=== PATIENT | female | born 1935 | race Caucasian/White ===

== ENCOUNTER 2016-10-19 15:48 | Emergency (ER) | payer OTHER ==
[~2016-10-19] VITALS: Ht 152.4 cm; Wt 59.9 kg
[2016-10-19 16:08] VITALS: BP 134/79
[2016-10-19] MEDS ORDERED: WELCHOL3.75 GM PO (16:49)
[2016-10-19] MEDS ORDERED: VITAMIN D2000 UNI1 PO (16:49)
[2016-10-19] MEDS ORDERED: OCUVITE SOFTGE1 EACH PO (16:50)
--- NOTE | 2016-10-19 17:03 | ED UPPER/LOWER EXTREMITY COMPL ---
History of Present Illness General Chief Complaint: Shoulder Injury Stated Complaint: FELL AND INJURED R SHOULDER Source: patient Exam Limitations: no limitations Vital Signs & Intake/Output Vital Signs & Intake/Output Vital Signs Date Time Temp Pulse Resp B/P Pulse O2 O2 Flow FiO2 Ox Delivery Rate 10/19 1608 97.7 71 18 134/79 98 Room Air ED Intake and Output 10/20 0000 10/19 1200 Intake Total Output Total Balance Patient 132 lb Weight Allergies Coded Allergies: STATINS (MUSCLE ACHES, DEPRESSION 10/19/16) Reconcile Medications Cholecalciferol (Vitamin D3) (Vitamin D) 2,000 UNIT TABLET 1 TAB PO DAILY SUPPLEMENT (Reported) Colesevelam HCl (Welchol) 3.75 GRAM POWD.PACK 1 PAC PO DAILY CHOLESTEROL ( Reported) mix with water, or juice Vit C/Vit E/Lutein/Min/[place]-3 (Ocuvite Softgel) 150 MG-30 UNIT-5 MG-150 MG CAPSULE 1 CAP PO DAILY SUPPLEMENT (Reported) Triage Note: PT TO TRIAGE 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 PT MEDICATED WITH TYLENOL 650MG PO IN TRIAGE. ICE PACK PROVIED. VSS. Triage Nurses Notes Reviewed? yes Onset: Abrupt Duration: constant, continues in ED Timing: remote history Severity: moderate, severe Pain/Injury Location: Right: Shoulder. No Modifying Factors: none HPI: 81-year-old female comes into emergency room for evaluation of right shoulder pain. Patient reports that she was getting up from her chair and tripped over the cord for her electric blanket and came down on her right shoulder. Patient denies any loss of consciousness. Denies any headache. Patient reports that she scraped her nose and the right but did not hit her head. Denies any neck pain. Patient reports that she banged her left knee but is only experiencing right shoulder pain. (JON VIDAL) Past History Travel History Traveled to [place] past 21 day No Medical History Any Pertinent Medical History? see below for history Cardiovascular: hyperlipidemia Surgical History Surgical History: non-contributory Psychosocial History What is your primary language Lithuanian Tobacco Use: Never used Family History Hx Contributory? No (JON VIDAL) Review of Systems Review of Systems Constitutional: Reports: no symptoms. EENTM: Reports: no symptoms. Respiratory: Reports: no symptoms. Cardiovascular: Reports: no symptoms. Gastrointestinal/Abdominal: Reports: no symptoms. Genitourinary: Reports: no symptoms. Musculoskeletal: Reports: see HPI. Skin: Reports: no symptoms. Neurological/Psychological: Reports: no symptoms. Hematologic/Endocrine: Reports: no symptoms. Immunological: Reports: no symptoms. All Other Systems: Reviewed and Negative (JON VIDAL) Physical Exam Physical Exam General Appearance: well developed/nourished, mild distress Head: atraumatic Eyes: Bilateral: normal appearance. Ears, Nose, Throat: normal ENT inspection, hearing grossly normal Neck: normal inspection Cardiovascular/Respiratory: no respiratory distress Back: normal inspection Shoulder Right: limited range of motion, CREPTUS Hand Right: normal inspection, normal range of motion Neurologic/Tendon: normal sensation, normal motor functions, normal tendon functions, responds to pain, no evidence tendon injury, no pulse deficit Skin: intact, normal color, warm/dry Lymphatic: no anterior cervical giovanni (JON VIDAL) Progress Differential Diagnosis: contusion, dislocation, fracture, gout, septic arthritis , sprain, tendon injury Plan of Care: Orders Procedure Date/time Status CT UPPER EXT WO IV CONTRAST 10/19 1703 Active Diagnostic Imaging: Viewed by Me: Radiology Read, CT Scan. Discussed w/RAD: Radiology Read, CT Scan. Radiology Impression: EXAM TYPE: RAD - XRY-SHOULDER COMPLETE-RIGHT EXAMINATION: XR SHOULDER, RIGHT CLINICAL INFORMATION: Right shoulder injury with pain COMPARISON: None. TECHNIQUE: 3 views of the right shoulder FINDINGS: There is a comminuted fracture of the right shoulder involving the neck of the humerus and greater tuberosity. There is slight impaction of the major fracture fragments with avulsion and displacement of the greater tuberosity. There is inferior subluxation of the humeral head in relation to the glenoid process the scapula. There is a probable undisplaced fracture involving the coronoid process of the scapula. There is hypertrophic bone along the undersurface of the acromion process of the scapula. Fracture of the tip of the acromion process would be difficult to entirely exclude. IMPRESSION: Comminuted impacted fracture of the head and neck of the right humerus with avulsion of the greater tuberosity and inferior subluxation of the humeral head in relation to the glenoid process. Possible undisplaced fracture of the tip of the coronoid process of the scapula. Hypertrophic bone versus avulsion fracture of the undersurface of the acromion process of the scapula. DICTATED BY: RAMSEY AVILES MD DATE/TIME DICTATED:1653 TRAIN CONDUCTOR:VALENTINA DATE/TIME TRANSCRIBED:10/19/161653, SERVICE DATE: 10/19/16 EXAM TYPE: CAT - CT UPPER EXT WO IV CONTRAST EXAMINATION: CT UPPER EXTREMITY (SHOULDER) WITHOUT CONTRAST, RIGHT CLINICAL INFORMATION: Trauma. Proximal humerus fracture. Assess for dislocation. COMPARISON: Plain films same date at 4:30 PM. TECHNIQUE: Contiguous axial imaging through the right shoulder. Coronal and sagittal reformats. DLP: 645.45 mGy-cm. FINDINGS: There is a severely comminuted impacted fracture of the head and surgical neck of the right humerus. Fracture line extends to the articular surface of the glenohumeral joint. On coronal reformats there is clear inferior displacement of the humeral head with rotation. The inferior rim of the glenoid impacts the fractured humeral head. This is consistent with an anterior inferior fracture or dislocation. The scapula is intact. Specifically, I see no fracture of the glenoid. There are degenerative changes associated with the acromion process but the acromioclavicular joint is preserved. The coracoclavicular ligament is intact. High attenuation material within the shoulder joint suggests hemarthrosis. Limited images through the right lung demonstrates apical pleural- parenchymal scarring. Small air cysts are noted. No rib fracture. IMPRESSION: This is a comminuted impacted anterior inferior fracture dislocation of the humeral head and neck. DICTATED BY: TITI VELASCO MD DATE/TIME DICTATED:10/19/161808 TRAIN CONDUCTOR:VALENTINA DATE/TIME TRANSCRIBED:10/19/161808 CONFIDENTIAL, DO NOT COPY WITHOUT APPROPRIATE AUTHORIZATION. (SAMSON SHARMA,JON) Departure Departure Disposition: HOME OR SELF CARE Condition: Stable Clinical Impression Primary Impression: Proximal humerus fracture Referrals: CHACORTA RENDON,JEWEL FAGAN MD,KEVIN Sandoval (PCP/Family) Additional Instructions: Take Tylenol for pain. Follow-up with orthopedic doctor. Ice. Stay in shoulder immobilizer. Return if any other concerns worsening symptoms. Please go over all results of today's visit with your primary care doctor. Contact your primary care doctor to let them know you were here in the emergency room. There may be nonspecific findings which may not be related to your visit today here in the emergency room but may require further evaluation and chronic monitoring by your primary care doctor. If you had a laceration today the chance of foreign body always remains. You should follow-up with your primary care doctor for recheck in 3-5 days for a wound check. If you had an x-ray done there is a chance that a fracture could have been missed on initial read and you should follow-up with your primary care doctor for repeat x-rays if symptoms persist. If your blood pressure was elevated here in the emergency room please have rechecked by her primary care doctor within the next 48 hours by your primary care doctor. If you were prescribed a narcotic here in the emergency room or any type of controlled substances you're not allowed to drive while taking this medication or operate any type of heavy machinery. Narcotics can make you feel lightheaded dizziness nausea and can cause constipation. You may need to pick up driver a stool softener. Thank you for choosing emergency room. Please return to the emergency room immediately if you have any other concerns worsening of symptoms. Departure Forms: Customer Survey General Discharge Information Comments I spoke with dr rosales from orthopedic. Patient to be discharged in shoulder immobilizer. Follow-up in office this week. Patient clinically looks well. Nontoxic-appearing. High functioning 81-year-old female. No head trauma. No neck pain. No traumas anywhere else. Some mild knee pain the patient able to ambulate with no difficulty. Patient has positive pulses and sensation intact. Patient is not in any distress despite fracture. Case discussed with patient and family. Patient understands and agrees with plan of care. (JON VIDAL) PA/CONCRETE BLOCK MOLDER Co-Sign Statement Statement: ED Attending supervision documentation- [X] I saw and evaluated the patient. I have also reviewed all the pertinent lab results and diagnostic results. I agree with the findings and the plan of care as documented in the PA's/CONCRETE BLOCK MOLDER's documentation. [X] I have reviewed the ED Record and agree with the PA's/CONCRETE BLOCK MOLDER's documentation. [] Additions or exceptions (if any) to the PAs/CONCRETE BLOCK MOLDER's note and plan are summarized below: [] (JEFERSON RENDON,CHARLOTTE) PA/CONCRETE BLOCK MOLDER Co-Sign Statement Statement: ED Attending supervision documentation- [x] I saw and evaluated the patient. I have also reviewed all the pertinent lab results and diagnostic results. I agree with the findings and the plan of care as documented in the PA's/CONCRETE BLOCK MOLDER's documentation. [] I have reviewed the ED Record and agree with the PA's/CONCRETE BLOCK MOLDER's documentation. [] Additions or exceptions (if any) to the PAs/CONCRETE BLOCK MOLDER's note and plan are summarized below: [] (THAIS RENDON,NICHOLAS Valdes) Procedures Splinting Location: RIGHT SHOULDER Manual Alignment Performed: No Pre-Made Type: SHOULDER IMMOBILIZER Splint Applied By: splint applied by me Pre-Proc Neuro Vasc Exam: normal Post-Proc Neuro Vasc Exam: normal (JON VIDAL)
--- NOTE | 2016-10-19 18:27 | CT SCAN REPORT ---
EXAMINATION: CT UPPER EXTREMITY (SHOULDER) WITHOUT CONTRAST, RIGHT CLINICAL INFORMATION: Trauma. Proximal humerus fracture. Assess for dislocation. COMPARISON: Plain films same date at 4:30 PM. TECHNIQUE: Contiguous axial imaging through the right shoulder. Coronal and sagittal reformats. DLP: 645.45 mGy-cm. FINDINGS: There is a severely comminuted impacted fracture of the head and surgical neck of the right humerus. Fracture line extends to the articular surface of the glenohumeral joint. On coronal reformats there is clear inferior displacement of the humeral head with rotation. The inferior rim of the glenoid impacts the fractured humeral head. This is consistent with an anterior inferior fracture or dislocation. The scapula is intact. Specifically, I see no fracture of the glenoid. There are degenerative changes associated with the acromion process but the acromioclavicular joint is preserved. The coracoclavicular ligament is intact. High attenuation material within the shoulder joint suggests hemarthrosis. Limited images through the right lung demonstrates apical pleural-parenchymal scarring. Small air cysts are noted. No rib fracture. IMPRESSION: This is a comminuted impacted anterior inferior fracture dislocation of the humeral head and neck.
== END 2016-10-19 20:03 ==
LOC: ERH 15:48
DX: S42.201A Unspecified fracture of upper end of right humerus, initial encounter for closed fracture (principal); W19.XXXA Unspecified fall, initial encounter
CPT/HCPCS: 73030-RT

== ENCOUNTER 2018-05-11 03:19 | Inpatient (IN) | payer OTHER ==
[~2018-05-11] VITALS: Ht 154.9 cm; Wt 59.0 kg
[~2018-05-11 03:19] MED LIST: OCUVITE SOFTGE1 EACH PO; VITAMIN D2000 UNI1 PO; WELCHOL3.75 GM PO
[2018-05-11 13:57] VITALS: BP 120/60
--- NOTE | 2018-05-11 15:47 | PN- Orthopedic ---
Subjective Subjective: POST-OP NOTE Reports slight nausea. Taking small sips. No dizziness. No shortness of breath. No chest pains. Not yet out of bed. She feels some numbness / tingling in her hand and fingers of her operative extremity as the block is wearing off. She denies using any assistive devices at baseline for ambulation, and anticipates discharge to home tomorrow. Objective Vital Signs and I&Os Vital Signs Date Time Temp Pulse Resp B/P B/P Pulse O2 O2 Flow FiO2 Mean Ox Delivery Rate 05/11 1357 98 Nasal 2.0L Cannula 05/11 1357 97.4 91 16 120/60 98 Nasal 2.0L Cannula Intake & Output 05/11 1600 05/11 0800 05/11 0000 05/10 1600 05/10 0805/10 0000 Intake Total 0 Output Total 0 Balance 0 Intake, Oral 0 Output, Urine 0 Patient 130 lb Weight Weight Reported by Patient Measurement Method Physical Exam: General - alert & oriented x 3. comfortable. no acute distress. Lungs - clear bilaterally. no w/r/r. Cardiac - s1s2. reg. Abdomen - soft. nontender. Extremities - warm bilaterally. right shoulder dressing c/d/i. ice pack in place. sensation grossly intact. 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 radial pulse 2+ b/l. calves soft and nontender b/ l. athrombics active b/l. Current Medications: Current Medications Sig/Mello Start time Last Medication Dose Route Stop Time Status Admin Acetaminophen 650 MG Q6P PRN 05/11 1400 AC PO Acetaminophen 0 .STK-MED ONE 05/11 709 DC PO Acetaminophen 1,000 MG .STK-MED ONE 05/11 0643 DC IV 05/11 0644 Acetaminophen 650 MG ONCE 05/11 0000 DC PO 05/11 2359 Aspirin Buffered 325 MG BID 05/12 0900 AC PO Cefazolin Sodium 1,000 MG IQ8 05/11 1600 AC IV 05/12 0001 Cefazolin Sodium 1,000 MG ONCE 05/11 0000 DC IV 05/11 235 Celecoxib 400 MG ONCE 05/11 DC PO 05/11 235 Dexamethasone 0 .STK-MED ONE 05/11 709 DC .ROUTE Dexamethasone 10 MG ONCE 05/11 0000 DC IV 05/11 235 Dextrose/Sodium 1,000 ML .Q10H 05/11 1400 AC 05/11 Chloride IV 1418 Docusate Sodium 100 MG BID 05/11 2100 AC PO Fentanyl Citrate 250 MCG .STK-MED ONE 05/11 0642 DC IM 05/11 0643 Gabapentin 0 .STK-MED ONE 05/11 0710 DC PO Gabapentin 300 MG ONCE 05/11 0000 DC PO 05/11 2359 Hydromorphone HCl 2 MG .STK-MED ONE 05/11 0642 DC IM 05/11 0643 Ondansetron HCl 4 MG Q6P PRN 05/11 1400 AC 05/11 IV 1515 Oxycodone HCl 0 .STK-MED ONE 05/11 0709 DC PO Oxycodone HCl 10 MG ONCE 05/11 0000 DC PO 05/11 2359 Oxycodone/ 1 TAB Q4P PRN 05/11 1400 AC Acetaminophen PO Oxycodone/ 2 TAB Q4P PRN 05/11 1400 AC Acetaminophen PO Scopolamine HBr 0 .STK-MED ONE 05/11 709 DC TOP Scopolamine HBr 1 PAT ONCE 05/11 0000 DC TOP 05/11 2359 Assessment/Plan Assessment/Plan This 83 year old female with hx hld and right humerus fracture is POD#0 s/p right total shoulder replacement advance diet as tolerated julissa-operative ancef x 2 doses [address] pack in place pain control as needed anti-emetics as needed right arm in sling / nwb continue neurovascular checks no need for PT / OT eval per asa 325mg BID x 2 weeks - dvt ppx f/u AM labs likely d/c home tomorrow will d/w Core Measures Venous Thromboembolism VTE Risk Factors Surgery No Mechanical VTE Prophylaxis d/t N/A MechProphylax Ordered No VTE Pharm Prophylaxis d/t NA PharmProphylax ordered
[2018-05-11 16:00] VITALS: BP 112/58
--- NOTE | 2018-05-11 18:30 | Operative Report ---
Operative/Inv Procedure Report Surgery Date: 05/11/18 Name of Procedure: Right total shoulder arthroplasty Pre-Operative Diagnosis: avascular necrosis right shoulder Post-Operative Diagnosis: Avascular necrosis right shoulder Estimated Blood Loss: 300 mL Surgeon/Valve Maker: Wei RENDON,Ludwin Valverde/Chiquita levy M.D. Anesthesia: general endotracheal tube, block Operative/Procedure Note Note: The patient was brought to the operating room after a block in the holding area. She was placed on the shoulder table had 2 g of Kefzol antibiotics was given a general anesthetic and was then brought to a semi-beachchair position at about 45 of elevation. The back of the table was removed for full extension of the operative right upper extremity. We did appropriate timeout indicating the right shoulder was indeed the operative shoulder was signed and verified by the nursing staff and myself. The right shoulder was prepped with alcohol and then had a prep and drape done. Our incision reinforced from the coracoid laterally following the deltopectoral interval. Cephalic vein was taken laterally with the deltoid. A Hohmann retractor was placed over the coracoid and a self- retaining retractor placed in the wound. The upper 1 cm of the pectoralis tendon was released. The conjoined tendon was then identified and released laterally. We placed a very gentle retractor under the conjoined tendon exposing the subscapularis. The circumflex vessels were not visualized. The rotator interval and took the subscapularis down after tagging the subscapularis along the anatomic neck of the humerus. Inferior capsular release was carried out. The head was noted to be totally misshapen secondary to avascular necrosis. Saw, cut was carried out using a guide. We then instrumented the humeral canal first with an intramedullary reamer and then reamed up and then broached up to a size 3 but noted a small calcar crack. We then downsized it to later in the procedure and cemented this in place. We could get the correct version using the appropriate guide along the forearm. A cup protector was placed on the humerus after preparing it. Our attention was then addressed the glenoid circumferential labrum was excised and inferior capsular release was carried out. The central glenoid was marked and circumferential Jarocho retractors were placed. Using the appropriate guide initial drill hole was placed centrally in the glenoid. We then used the guide for the pegged component and drilled the additional holes. Thorough irrigation was carried out the appropriate sized hole poly-glenoid using a small component was placed and held until cement cured and any extraneous cement removed. We went back to the humerus went ahead and placed a canal restrictor about a centimeter and a half distal to the final stem size. Irrigated and dried the canal and cemented humeral component in place in the appropriate version. The appropriate head was then trialed and we went ahead and placed the appropriate sized head. We did notice that the humeral component liked to sit somewhat low in the glenohumeral joint. When we repaired the subscapularis we held this in the appropriate position and then repaired the subscapularis at a slightly lower level than where we took it from. Thorough pulsatile irrigation was carried out and closed in a layered fashion and the arm was taken through range of motion she could achieve 140 of forward flexion and external rotation to 4550 and internal rotation to 30-40. As mentioned the posterior irrigation was carried out the wound was closed in a layered fashion she was placed in the appropriate sling and sent back to recovery room in stable condition History counts were correct end of dictationby Dr. Carvajal thank you
[2018-05-11 20:00] VITALS: BP 104/62
[2018-05-12] VITALS: BP 102/52
[2018-05-12 03:58] VITALS: BP 106/58
--- NOTE | 2018-05-12 07:32 | Patient Discharge Instructions ---
Discharge Instructions General Discharge Information You were seen/treated for: avascular necrosis right shoulder You had these procedures: Right total shoulder arthroplasty Watch for these problems: FEVER>101.3, INCREASED PAIN, REDNESS/SWELLING/DRAINAGE, DIZZINESS, SHORTNESS OF BREATH, CHEST PAINS Call Surgeon to remove: Yulisa (STAPLE REMOVAL AROUND POD#14) No bath, but you may shower: Yes Other wound care: KEEP ARM ELEVATED IN SLING. CONTINUE TO USE ICE. KEEP INCISIONS CLEAN & DRY. Diet Continue normal diet: Yes Recommended Diet: Regular Activity Full Activity/No Limits: No Activity Self Limited: Yes Pounds, do NOT lift more than: 0 Activity Limited to: No weight bearing Other activity limits: KEEP ARM IN SLING. ICE DIRECTED Acute Coronary Syndrome Inclusion Criteria At DC or during hospital stay patient has or had the following: ACS DIAGNOSIS No Discharge Core Measures Meds if any: Prescribed or Continued at Discharge Meds if any: NOT Prescribed or Continued at Discharge Congestive Heart Failure Inclusion Criteria At DC or during hospital stay patient has or had the following: CHF DIAGNOSIS No Discharge Core Measures Meds if any: Prescribed or Continued at Discharge Meds if any: NOT Prescribed or Continued at Discharge Cerebrovascular accident Inclusion Criteria At DC or during hospital stay patient has or had the following: CVA/TIA Diagnosis No Discharge Core Measures Meds if any: Prescribed or Continued at Discharge Meds if any: NOT Prescribed or Continued at Discharge Venous thromboembolism Inclusion Criteria VTE Diagnosis No VTE Type NONE VTE Confirmed by (Test) NONE Discharge Core Measures - Per Current guidelines, there needs to be overlap - treatment for the first 5 days of Warfarin therapy. - If discharged on Warfarin prior to 5 days of - overlap therapy, the patient will need to be - assessed for post discharge needs including - *Post discharge parental anticoagulation - *Warfarin and/or parental anticoagulation education - *Follow up date to check INR post discharge At least 5 days overlap therapy as Inpatient No Meds if any: Prescribed or Continued at Discharge Note: Overlap Therapy is Warfarin and Anticoagulant Meds if any: NOT Prescribed or Continued at Discharge
[2018-05-12] MEDS ORDERED: TYLENOL EXTRA500 M2 PO (07:36)
[2018-05-12] MEDS ORDERED: DOCUSATE SODIU100 M3 PO (07:36)
[2018-05-12] MEDS ORDERED: OXYCODONE HCL5 M1 PO (07:36)
[2018-05-12] MEDS ORDERED: ASPIRIN EC325 M2 PO (07:36)
--- NOTE | 2018-05-12 07:42 | Surg Short-stay <48hrs Dis Sum ---
Visit Information Visit Dates Admission Date: 05/11/18 Discharge Date: 05/12/18 Surgical Short Stay DC Summary Admission Diagnosis: avascular necrosis right shoulder Final Diagnosis: avascular necrosis right shoulder Procedure(s): Right total shoulder arthroplasty (05/12/18) Summary/Significant Findings: Electively scheduled right total shoulder arthroplasty on 05/11/18 by for avascular necrosis right shoulder, which went routinely. She had post- operative nausea, which improved after receiving several medications her during her overnight stay. Her arm was placed in a sling immediately post-op, and ice was used on her shoulder during her hospitalization. Once she was tolerating food, was out of bed independently, and her pain was controlled, she was discharged to home. Aspirin 325mg twice daily was initiated post-op day#1, to continue for 2 weeks per . Condition at Discharge: stable Discharge Disposition: home or self care Discharge instructions provided to patient/family: Yes Post discharge follow-up plan: follow up with in 2 weeks keep arm in sling. nonweight bearing. continue ice. Copies to: Mitch RENDON,Farhad Sandoval
--- NOTE | 2018-05-12 07:47 | PN- Orthopedic ---
Subjective Subjective: Nausea resolved overnight. Tolerating clears. Out of bed to bathroom without difficulty. No dizziness. No shortness of breath. No chest pains. Voiding well. Resolving numbess / tingling of her right hand. She anticipates discharge to home today, and wants her prescriptions sent to [facility] in [place]. Objective Vital Signs and I&Os Vital Signs Date Time Temp Pulse Resp B/P B/P Pulse O2 O2 Flow FiO2 Mean Ox Delivery Rate 05/12 035 97.9 86 16 106/58 95 Room Air 05/12 0000 98.0 81 16 102/52 95 Room Air 05/11 2000 97.6 79 16 104/62 94 Nasal Cannula 05/11 1928 Room Air Room Air 05/11 1600 Nasal 2.0L Cannula 05/11 1600 97.6 64 18 112/58 98 05/11 1357 98 Nasal 2.0L Cannula 05/11 135 97.4 91 16 120/60 98 Nasal 2.0L Cannula Intake & Output 05/12 0000 05/11 1600 05/11 0800 05/11 0000 05/10 1600 Intake Total 980 400 0 Output Total 0 Balance 980 400 0 Intake, IV 800 400 Intake, Oral 180 0 Output, Urine 0 Patient 130 lb Weight Weight Reported by Patient Measurement Method Physical Exam: General - alert & oriented x 3. comfortable. no acute distress. Lungs - clear bilaterally. no w/r/r. Cardiac - s1s2. reg. Abdomen - soft. nontender. Extremities - warm bilaterally. right arm in sling. ice over right shoulder. grossly nvi. dressing c/d/i. calves soft and nontender b/l. athrombics active b/l. Current Medications: Current Medications Sig/Mello Start time Last Medication Dose Route Stop Time Status Admin Acetaminophen 650 MG Q6P PRN 05/11 1400 AC PO Acetaminophen 650 MG ONCE 05/11 0000 DC PO 05/11 235 Aspirin Buffered 325 MG BID 05/12 0900 AC PO Cefazolin Sodium 1,000 MG IQ8 05/11 1600 DC 05/11 IV 05/12 0001 2335 Cefazolin Sodium 1,000 MG ONCE 05/11 0000 DC IV 05/11 235 Celecoxib 400 MG ONCE 05/11 0000 DC PO 05/11 235 Dexamethasone 4 MG ONCE ONE 05/11 1800 DC 05/11 Dextrose/Water 50 ML IV 05/11 1830 1922 Dexamethasone 10 MG ONCE 05/11 0000 DC IV 05/11 2359 Dextrose/Sodium 1,000 ML .Q10H 05/11 1400 DC 05/11 Chloride IV 2336 Docusate Sodium 100 MG BID 05/11 2100 AC PO Gabapentin 300 MG ONCE 05/11 0000 DC PO 05/11 2359 Labetalol HCl 10 MG ONCE ONE 05/11 1845 CAN IV 05/11 1846 Ondansetron HCl 4 MG Q6P PRN 05/11 1400 AC 05/11 IV 1515 Oxycodone HCl 10 MG ONCE 05/11 0000 DC PO 05/11 2359 Oxycodone/ 1 TAB Q4P PRN 05/11 1400 AC Acetaminophen PO Oxycodone/ 2 TAB Q4P PRN 05/11 1400 AC Acetaminophen PO Promethazine HCl 12.5 MG Q4 HRS NEEDED PRN 05/11 1800 AC IV 05/18 1759 Scopolamine HBr 1 PAT ONCE 05/11 0000 DC TOP 05/11 2359 Trimethobenzamide HCl 200 MG TIDPRN PRN 05/11 1700 DC 05/11 IM 1729 Assessment/Plan Assessment/Plan This 83 year old female with hx hld is POD#1 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 d/c iv fluids pain controlled asa 325mg BID arm in sling ice in place oob without difficulty no role for PT / OT julissa-op ancef completed d/c home today will d/w Core Measures Venous Thromboembolism VTE Risk Factors Surgery No Mechanical VTE Prophylaxis d/t N/A MechProphylax Ordered No VTE Pharm Prophylaxis d/t NA PharmProphylax ordered
[2018-05-12 10:42] LABS: ABSOLUTE BASOPHIL COUNT 0 /CUMM (0.0-0.2); ABSOLUTE EOSINOPHIL COUNT 0 /CUMM (0.0-0.7); ABSOLUTE GRANULOCYTE CT 10.7 /CUMM (1.4-6.5); ABSOLUTE LYMPH COUNT 0.6 /CUMM (1.2-3.4); ABSOLUTE MONOCYTE COUNT 0.7 /CUMM (0.10-0.60); BASOPHIL % 0 % (0.0-2.0); EOSINOPHIL % 0.1 % (0-5); HEMATOCRIT 28.7 % (37-47); MEAN CORPUSCULAR HGB 27.9 PG (27.0-31.0); MEAN CORPUSCULAR VOLUME 84.6 FL (81.0-99.0); PLATELET COUNT 212 /CUMM (130-400); RBC DISTRIBUTION WIDTH 14.1 % (11.5-14.5); RED BLOOD CELL CT 3.39 /CUMM (4.20-5.40)
[2018-05-12 11:28] LABS: GRANULOCYTE % 89.1 % (42.2-75.2)
== END 2018-05-12 12:13 | DRG 483 ==
LOC: SDA 03:19 → 2NA 03:19 → SDA 07:00 → ENTRNSPT 13:22 → EDTRNSPTSTS 13:29 → EDTRNSPT 13:29 → 2NA 13:40 → CMPTRNSPT 13:48 → ENPENDDIS 05-12 07:46 → ENTRNSPT 05-12 11:50 → EDTRNSPT 05-12 12:06 → EDTRNSPTSTS 05-12 12:06 → CMPTRNSPT 05-12 12:12 → 2NA 05-12 12:13
PROVIDERS: Physician Assistant
PROC: 3E0T3BZ Introduction of Anesthetic Agent into Peripheral Nerves and Plexi, Percutaneous Approach (ICD-10-PCS; principal; 2018-05-11)
PROC: 0RRJ0JZ Replacement of Right Shoulder Joint with Synthetic Substitute, Open Approach (ICD-10-PCS; principal; 2018-05-11)
DX: M87.811 Other osteonecrosis, right shoulder (principal); E78.5 Hyperlipidemia, unspecified; R11.0 Nausea; Z90.710 Acquired absence of both cervix and uterus
CPT/HCPCS: 2NASP; 36415; 82436; C1713; C9290; J0131; J0690; J1100; J2405; J2550; J3250; J3490